=== PATIENT | male | born 1995 | race Caucasian/White ===

== ENCOUNTER 2018-02-09 14:40 | Emergency (ER) | payer OTHER ==
[2018-02-09 14:50] VITALS: BP 136/88
--- NOTE | 2018-02-09 15:00 | Emergency Department Report ---
HPI - General Chief Complaint: Skin Rash Time Seen by Provider: 02/09/18 14:57 - HPI HPI: Patient reports that he has rash all over his body pain, chest upper and lower back and pelvic area and he went to pharmacy and it told him to take Benadryl this is been 4 days and it is not working. He said he also tried Zyrtec which is not helping. Denies any shortness of breath, cough, wheeze or stridor. He said he had just moved to [place] recently and he's never had similar rash. He doesn't recall any new medication detergents or food in his environment he does have a history of asthma but he said he hadn't had a flare up in a long time and he doesn't use any medication. He is reporting redness and itching and denies any pain. Immunizations up-to-date per patient. ED Past Medical Hx - Past Medical History Previous Medical History?: Yes Hx Asthma: Yes - Surgical History Past Surgical History?: No - Family History Family history: no significant - Social History Smoking Status: Current Every Day Smoker Substance Use Type: None - Medications Home Medications: Home Medications Medication Instructions Recorded Confirmed Last Taken Type Cetirizine HCl [ZyrTEC] 10 mg PO QAM 5 Days #5 capsule 02/09/18 Unknown Rx Prednisone [predniSONE 10 mg 10 mg PO .TAPER 6 Days #1 tab.ds.pk 02/09/18 Unknown Rx (6-Day Pack, 21 Tabs)] diphenhydrAMINE [Benadryl CAP] 50 mg PO Q8HR PRN #15 capsule 02/09/18 Unknown Rx ED Review of Systems ROS: Stated complaint: RASH ON BODY Other details as noted in HPI Comment: All other systems reviewed and negative Constitutional: no symptoms reported ENT: denies: ear pain, throat pain, congestion Respiratory: no symptoms reported Cardiovascular: denies: chest pain, palpitations, dyspnea on exertion, edema, syncope, paroxysmal nocturnal dyspnea Gastrointestinal: denies: abdominal pain, nausea, vomiting, diarrhea Genitourinary: denies: hematuria Musculoskeletal: denies: back pain, joint swelling, arthralgia, myalgia Skin: rash, pruritus Neurological: denies: headache, abnormal gait, vertigo Physical Exam - Physical Exam Vital Signs: Vital Signs 02/09/18 14:47 Temperature 98.5 F Pulse Rate 110 H Respiratory 16 Rate Blood Pressure 136/88 O2 Sat by Pulse 98 Oximetry Vital Signs 02/09/18 02/09/18 14:47 17:34 Temperature 98.5 F Pulse Rate 110 H 88 Respiratory 16 Rate Blood Pressure 136/88 O2 Sat by Pulse 98 100 Oximetry General: This is a 23-year-old male well-nourished well-developed in no acute distress. Physical Exam: Head: Normocephalic, atraumatic, no abrasion, no bruising and no contusion. Eyes: Biateral pupils equal and reactive to light, bilateral EOM intact.. Bilateral conjunctival and sclera without injection, normal accommodation. Mouth: Mucosa dry, no pharyngeal exudate or erythema. No peritonsillar abscesses. Uvula is midline and oral airways patent. Tongue is normal. No facial or lip swelling Ears: Bilateral TMs pearly smyth Bilateral EAC without any redness swelling or drainage. No mastoid bone tenderness Nose: nasal mucosa normal ,Maxillary and frontal sinuses non-tender to palpate. Neck: Supple, No Cervical adenopathy, full range of motion and no C-spine tenderness. No swelling or tracheal deviation normal reflexes Cardiovascular: S1, S2. Tachycardic, Regular rhythm. No murmur. Capillary refill is less then 3 seconds. Lungs: Clear to auscultate bilaterally. No rhonchi, wheezes or rales. No chest wall tenderness. No chest contusion. No bruising to chest. Abdomen: Non-tender to palpate in all quadrants, no guarding or rebound tenderness, positive bowel sounds in all quadrants. No CVA tenderness. No hernia, bruit or mass. No rigidity or distention. Extremities: No clubbing, cyanosis or edema. +2 pulses. No neurovascular compromise Skin: Clean, dry , patient with urticarial type rash, erythema to anterior and posterior torso. No neck face or extremity involvement. Neurological: GCS at 15, Pt is alert and oriented 3 speech is clear . Psych: Normal mood and behavior ED Course Vital Signs 02/09/18 14:47 Temperature 98.5 F Pulse Rate 110 H Respiratory 16 Rate Blood Pressure 136/88 O2 Sat by Pulse 98 Oximetry Vital Signs 02/09/18 02/09/18 14:47 17:34 Temperature 98.5 F Pulse Rate 110 H 88 Respiratory 16 Rate Blood Pressure 136/88 O2 Sat by Pulse 98 100 Oximetry - Reevaluation(s) Reevaluation #1: 02/09/18 17:37 Patient was given Pepcid 20 mg IV, Benadryl 50 mg IV and Solu-Medrol 125 mg IV. Rash has minimize after reevaluation. Patient observed in room and rash has cleared significantly. No respiratory involvement in emergency room. ED Medical Decision Making - Medical Decision Making ED course: Patient here presented complaining of rash, itchiness of unknown cause over 4 days. He said he took Benadryl and Zyrtec without any relief. Patient states with urticarial type rash appears to be hives. He was given Benadryl 50 mg IV, Solu-Medrol 125 mg IV and Pepcid 20 mg IV and observed in emergency room. Reassessment rashes cleared significantly. Patient said he is feeling better without any itching. Patient discharged home with prescription for Benadryl, Zyrtec and Medrol Dosepak. I discussed with interferential returns or if he developed any coughing, wheezing or difficulty breathing and swelling of tongue or any problems with his neck to return to emergency room otherwise follow-up at [facility] in 2 days as he does not have a primary care physician. Critical care attestation.: If time is entered above; I have spent that time in minutes in the direct care of this critically ill patient, excluding procedure time. ED Disposition Clinical Impression: Urticaria, Pruritic dermatitis Disposition: DC-01 TO HOME OR SELFCARE Is pt being admited?: No Does the pt Need Aspirin: No Condition: Stable Instructions: Urticaria (ED), Itchy Skin (ED) Additional Instructions: Please see medication as prescribed Drive or operate heavy machinery while taking Benadryl as this medication causes drowsiness. Follow-up with [facility] in 2 days. If you're rash returns, coughing, wheezing, stridor, chest pain, swollen tongue/ lips/neck and difficulty swallowing history tenths emergency room [facility]ANIEL. Prescriptions: Cetirizine HCl [ZyrTEC] 10 mg PO QAM 5 Days #5 capsule diphenhydrAMINE [Benadryl CAP] 50 mg PO Q8HR PRN #15 capsule PRN Reason: Allergic Reaction Prednisone [predniSONE 10 mg (6-Day Pack, 21 Tabs)] 10 mg PO .TAPER 6 Days #1 tab.ds.pk Referrals: PRIMARY CARE, [Primary Care Provider] - 02/11/18 [facility] [Outside] - 02/11/18 YOGI BEDOLLA MD [Staff Physician] - 02/11/18 Forms: Work/School Release Form(ED)
[2018-02-09] MEDS ORDERED: BENADRYL IV ONE (15:01)
[2018-02-09] MEDS ORDERED: PEPCID IV ONE (15:01)
== END 2018-02-09 17:56 | disposition home or self-care (01) ==
LOC: ED 14:40
DX: L50.9 Urticaria, unspecified (principal); J45.909 Unspecified asthma, uncomplicated; F17.200 Nicotine dependence, unspecified, uncomplicated
CPT/HCPCS: 96374; 96375; 99282; J1200; J2930

== ENCOUNTER 2021-05-05 09:30 | Emergency (ER) | payer SELFPAY ==
[2021-05-05 10:07] VITALS: BP 114/69
--- NOTE | 2021-05-05 10:46 | Emergency Department Report ---
ED Abdominal Pain HPI - General Chief Complaint: Abdominal Pain Stated Complaint: ABD PAINS Time Seen by Provider: 05/05/21 10:15 Source: patient Mode of arrival: Ambulatory Limitations: No Limitations - History of Present Illness Initial Comments: 26 year old male with no significant past medical hx presents to ED with c/o left lower quadrant abdominal pain. He states his pain started about 1 week ago. He states it seems to be getting worse. He reports pain radiating down into his left groin and into his left testicle and also his left flank. He reports dysuria but denies any hematuria, or penile d/c. He denies nausea or vomiting or diarrhea or constipation. He denies any fever or chills. He does admit to having multiple sexual partners and unprotected sexual intercourse. MD Complaint: abdominal pain, flank pain -: week(s) (1) - Related Data Previous Rx's Medication Instructions Recorded Last Taken Type Cetirizine HCl [ZyrTEC] 10 mg PO QAM 5 Days #5 capsule 02/09/18 Unknown Rx Prednisone [predniSONE 10 mg 10 mg PO .TAPER 6 Days #1 tab.ds.pk 02/09/18 Unknown Rx (6-Day Pack, 21 Tabs)] diphenhydrAMINE [Benadryl CAP] 50 mg PO Q8HR PRN #15 capsule 02/09/18 Unknown Rx DOXYCYCLINE Hyclate [Vibramycin 100 mg PO Q12HR #14 capsule 05/05/21 Unknown Rx CAP] Ibuprofen [Motrin] 600 mg PO Q8H PRN #30 tablet 05/05/21 Unknown Rx Allergies Allergy/AdvReac Type Severity Reaction Status Date / Time No Known Allergies Allergy Unverified 02/09/18 14:50 ED Review of Systems ROS: Stated complaint: ABD PAINS Other details as noted in HPI Comment: All other systems reviewed and negative Constitutional: denies: chills, fever Respiratory: denies: cough, shortness of breath, wheezing Cardiovascular: denies: chest pain, palpitations Gastrointestinal: abdominal pain. denies: nausea, vomiting, diarrhea, constipation, hematemesis, hematochezia Genitourinary: dysuria, testicular pain. denies: frequency, hematuria, discharge Musculoskeletal: back pain Skin: denies: rash, lesions Neurological: denies: headache, weakness, numbness, paresthesias, confusion, abnormal gait, vertigo Psychiatric: denies: anxiety, depression, auditory hallucinations, visual hallucinations, homicidal thoughts, suicidal thoughts Hematological/Lymphatic: denies: easy bleeding, easy bruising ED Past Medical Hx - Past Medical History Previous Medical History?: Yes Hx Asthma: Yes - Social History Smoking Status: Current Every Day Smoker Substance Use Type: None - Medications Home Medications: Home Medications Medication Instructions Recorded Confirmed Last Taken Type Cetirizine HCl [ZyrTEC] 10 mg PO QAM 5 Days #5 capsule 02/09/18 Unknown Rx Prednisone [predniSONE 10 mg 10 mg PO .TAPER 6 Days #1 tab.ds.pk 02/09/18 Unknown Rx (6-Day Pack, 21 Tabs)] diphenhydrAMINE [Benadryl CAP] 50 mg PO Q8HR PRN #15 capsule 02/09/18 Unknown Rx DOXYCYCLINE Hyclate [Vibramycin 100 mg PO Q12HR #14 capsule 05/05/21 Unknown Rx CAP] Ibuprofen [Motrin] 600 mg PO Q8H PRN #30 tablet 05/05/21 Unknown Rx ED Physical Exam - General Limitations: No Limitations General appearance: alert, in no apparent distress - Head Head exam: Present: atraumatic, normocephalic, normal inspection - Eye Eye exam: Present: normal appearance, PERRL, EOMI Pupils: Present: normal accommodation - ENT ENT exam: Present: mucous membranes moist - Respiratory Respiratory exam: Present: normal lung sounds bilaterally. Absent: respiratory distress - Cardiovascular Cardiovascular Exam: Present: regular rate, normal rhythm, normal heart sounds - GI/Abdominal GI/Abdominal exam: Present: soft, tenderness (TTP LLQ and RLQ without rebound or guarding or rigidity ). Absent: distended, guarding, rebound, rigid - exam: Present: normal inspection, testicular tenderness (left ), other (Kosher Butcher present at time of my exam). Absent: urethral discharge, scrotal swelling External exam: Present: normal external exam - Back Exam Back exam: Present: CVA tenderness (L) (mild ) - Neurological Exam Neurological exam: Present: alert, oriented X3, CN II-XII intact, normal gait - Psychiatric Psychiatric exam: Present: normal affect, normal mood - Skin Skin exam: Present: intact ED Course Vital Signs 05/05/21 10:06 Temperature 98.1 F Pulse Rate 77 Respiratory 13 Rate Blood Pressure 114/69 O2 Sat by Pulse 99 Oximetry ED Medical Decision Making - Lab Data Result diagrams: 05/05/21 10:52 05/05/21 10:52 - Radiology Data Radiology results: report reviewed Signed Patient: WILLI PEDRO MR#: [id number] 53 : 1995 Acct:[id number] Age/Sex: 26 / M ADM Date: 05/05/21 Loc: ED Attending Dr: Ordering Physician: IZA KAT Date of Service: 05/05/21 Procedure(s): US testicular doppler comp Accession Number(s): [id number] cc: IZA KAT ULTRASOUND TESTICULAR DOPPLER COMPLETE HISTORY: left testicular pain COMPARISON: None. TECHNIQUE: Grayscale, color and spectral Doppler images were obtained of the scrotum. FINDINGS: RIGHT: Right testicle: No significant abnormality. No mass. Right testicular size: 4.5 x 2.1 x 3.3 cm. Right epididymis: No significant abnormality. LEFT: Left testicle: No significant abnormality. No mass. Left testicular size: 4.4 x 2.2 x 3.0 cm. Left epididymis: No significant abnormality. Additional findings: Spectral Doppler waveforms demonstrate arterial flow b ilaterally. No torsion. IMPRESSION: No significant abnormality identified. Signer Name: Lucas Gusman Jr, MD Signed: 05/05/2021 11:42 AM Workstation Name: [id number] Transcribed By: TTR Dictated By: LUCAS GUSMAN JR, MD Electronically Authenticated By: LUCAS GUSMAN JR, MD Signed Date/Time: 05/05/21 1142 DD/ 1140 TD/TT: Patient: WILLI PEDRO MR#: [id number] 51 : 1995 Acct:[id number] Age/Sex: 26 / M ADM Date: 05/05/21 Loc: ED Attending Dr: Ordering Physician: IZA KAT Date of Service: 05/05/21 Procedure(s): CT abdomen pelvis w con Accession Number(s): [id number] cc: IZA KAT CT ABDOMEN AND PELVIS WITH CONTRAST INDICATION / CLINICAL INFORMATION: left sided abd pain/left flank paiN OMNI 300 100 ML. TECHNIQUE: Axial CT images were obtained through the abdomen and pelvis after 100 cc Omnipaque 300 milligrams percent IV contrast. All CT scans at this location are performed using CT dose reduction for ALARA by means of automated exposure control. COMPARISON: None available. FINDINGS: LOWER CHEST: No significant abnormality. LIVER: No significant abnormality. GALLBLADDER: No significant abnormality. BILE DUCTS: No significant abnormality. PANCREAS: No significant abnormality. SPLEEN: No significant abnormality. ADRENALS: No significant abnormality. RIGHT KIDNEY and URETER: No significant abnormality. LEFT KIDNEY and URETER: No significant abnormality. STOMACH and SMALL BOWEL: No significant abnormality. COLON: No significant abnormality. APPENDIX: No significant abnormality. PERITONEUM: No free fluid. No free air. No fluid collection. LYMPH NODES: No significant adenopathy. AORTA and ARTERIES: No significant abnormality. IVC and VEINS: No significant abnormality. URINARY BLADDER: No significant abnormality. REPRODUCTIVE ORGANS: No significant abnormality. ADDITIONAL FINDINGS: None. SKELETAL SYSTEM: No significant abnormality. IMPRESSION: 1. No significant abnormality. Signer Name: Aldo Gerard MD Signed: 05/05/2021 1:28 PM Workstation Name: [id number] Transcribed By: Dictated By: Aldo Gerard MD Electronically Authenticated By: Aldo Gerard MD Signed Date/Time: 05/05/21 1328 DD/ 1325 TD/TT: - Medical Decision Making Labs reviewed -CBC, CMP and urinalysis unremarkable. Testicular ultrasound negative for anything acute. CT abdomen pelvis with IV contrast shows nothing acute. Given patient history of having multiple sexual partners and his complaint of dysuria patient will be treated prophylactically for gonorrhea and chlamydia. He was given dose of Rocephin IM in the ER and he will be discharged home on doxycycline. Discussed lab results and imaging results with patient. He is currently resting comfortably, is not in any significant distress. He is not toxic or ill- appearing. He is neurologically intact with a normal gait. His vital signs are stable. Discussed treatment plan with patient and the reason for giving him antibiotics. Patient expressed understanding of instructions and agree with plan. Patient was stable at time of discharge. Critical care attestation.: If time is entered above; I have spent that time in minutes in the direct care of this critically ill patient, excluding procedure time. ED Disposition Clinical Impression: Urethritis, Left sided abdominal pain, Testicular pain, left Disposition: DC- TO HOME OR SELFCARE Is pt being admited?: No Does the pt Need Aspirin: No Condition: Stable Instructions: Abdominal Pain, Adult, [id number], Urethritis, Adult, Testicular Self-Exam Additional Instructions: I recommend that you take the doxycycline as prescribed. Also take the ibuprofen as needed for pain. Recommend that you practice safe sex. Your partner should also get tested and treated. Follow-up with the primary care doctor listed on your discharge instructions. Return to the ER if your symptoms changes or worsens in any way Prescriptions: Ibuprofen [Motrin] 600 mg PO Q8H PRN #30 tablet PRN Reason: Pain DOXYCYCLINE Hyclate [Vibramycin CAP] 100 mg PO Q12HR #14 capsule Referrals: PRIMARY MD HERNAN [Primary Care Provider] - 3-5 Days KHALIF GUZMÁN MD [Staff Physician] - 3-5 Days [facility] [Provider Group] - 3-5 Days Forms: STI Treatment and Prevention Time of Disposition: 13:39
[2021-05-05 11:05] LABS: Basophils # (Auto) 0.1 K/mm3 (0.0-0.1); Basophils % (Auto) 1.1 % (0.0-1.8); Eosinophils # (Auto) 0.2 K/mm3 (0.0-0.4); Eosinophils % (Auto) 2.2 % (0.0-4.3); Hemoglobin 15.9 gm/dl (11.8-15.2); Lymphocytes # (Auto) 2.2 K/mm3 (1.2-5.4); Lymphocytes % (Auto) 30.2 % (13.4-35.0); Mean Corpuscular HGB Conc 34 % (32-34); Mean Corpuscular Volume 91 fl (84-94); Monocytes # (Auto) 0.6 K/mm3 (0.0-0.8); Monocytes % (Auto) 7.8 % (0.0-7.3); Platelet Count 171 K/mm3 (140-440); Red Blood Count 5.16 M/mm3 (3.65-5.03); Red Cell Distribution Width 13.8 % (13.2-15.2)
[2021-05-05 11:35] LABS: Alanine Aminotransferase 20 units/L (7-56); Albumin 4.5 g/dL (3.9-5); BUN/Creatinine Ratio 15; Blood Urea Nitrogen 12 mg/dL (9-20); Calcium 9.4 mg/dL (8.4-10.2); Hemolysis Index 11
[2021-05-05 11:42] LABS: Bilirubin,Urine NEG (Negative); Blood,Urine NEG (Negative); Color,Urine Yellow (Yellow); Mucus,Urine 1+ /HPF; Protein,Urine <15 mg/dL mg/dL (Negative)
--- NOTE | 2021-05-05 11:47 | Ultrasound Report ---
ULTRASOUND TESTICULAR DOPPLER COMPLETE HISTORY: left testicular pain COMPARISON: None. TECHNIQUE: Grayscale, color and spectral Doppler images were obtained of the scrotum. FINDINGS: RIGHT: Right testicle: No significant abnormality. No mass. Right testicular size: 4.5 x 2.1 x 3.3 cm. Right epididymis: No significant abnormality. LEFT: Left testicle: No significant abnormality. No mass. Left testicular size: 4.4 x 2.2 x 3.0 cm. Left epididymis: No significant abnormality. Additional findings: Spectral Doppler waveforms demonstrate arterial flow bilaterally. No torsion. IMPRESSION: No significant abnormality identified. Signer Name: Lucas Gusman Jr, MD Signed: 05/05/2021 11:42 AM Workstation Name: [id number]
[2021-05-05] MEDS ORDERED: LIDOCAINE-MPF (1%) 10 MG/1 ML VIAL 5 ML INFILTRATI ONE (13:06)
--- NOTE | 2021-05-05 13:33 | Cat Scan Report ---
CT ABDOMEN AND PELVIS WITH CONTRAST INDICATION / CLINICAL INFORMATION: left sided abd pain/left flank paiN OMNI 300 100 ML. TECHNIQUE: Axial CT images were obtained through the abdomen and pelvis after 100 cc Omnipaque 300 milligrams pe rcent IV contrast. All CT scans at this location are performed using CT dose reduction for ALARA by means of automated exposure control. COMPARISON: None available. FINDINGS: LOWER CHEST: No significant abnormality. LIVER: No significant abnormality. GALLBLADDER: No significant abnormality. BILE DUCTS: No significant abnormality. PANCREAS: No significant abnormality. SPLEEN: No significant abnormality. ADRENALS: No significant abnormality. RIGHT KIDNEY and URETER: No significant abnormality. LEFT KIDNEY and URETER: No significant abnormality. STOMACH and SMALL BOWEL: No significant abnormality. COLON: No significant abnormality. APPENDIX: No significant abnormality. PERITONEUM: No free fluid. No free air. No fluid collection. LYMPH NODES: No significant adenopathy. AORTA and ARTERIES: No significant abnormality. IVC and VEINS: No significant abnormality. URINARY BLADDER: No significant abnormality. REPRODUCTIVE ORGANS: No significant abnormality. ADDITIONAL FINDINGS: None. SKELETAL SYSTEM: No significant abnormality. IMPRESSION: 1. No significant abnormality. Signer Name: Aldo Gerard MD Signed: 05/05/2021 1:28 PM Workstation Name: [id number]
== END 2021-05-05 16:21 | disposition home or self-care (01) ==
LOC: ED 09:30
DX: N34.2 Other urethritis (principal); N50.812 Left testicular pain; J45.909 Unspecified asthma, uncomplicated; F17.200 Nicotine dependence, unspecified, uncomplicated; Z98.890 Other specified postprocedural states; Z79.899 Other long term (current) drug therapy
CPT/HCPCS: 36415; 74177; 80053; 81001; 83690; 83735; 85025; 93975; 96372; 99284; J0696; Q9967